=== PATIENT | male | born 1985 | race Two or more races ===

== ENCOUNTER 2020-05-08 22:32 | Emergency (ER) | payer MEDICAID, OTHER ==
[~2020-05-08] VITALS: Ht 170.2 cm; Wt 79.4 kg
[2020-05-08] MEDS ORDERED: BUPIVACAINE 0.5% P/F INJ 10 ML VIAL ONE (22:43)
[2020-05-08 23:29] LABS: Basophils # (auto) 0.1 10 ^3/uL (0-0.2); Eosinophils # (auto) 0.2 10 ^3/uL (0-0.8); Eosinophils % (auto) 2.2 % (0.0-7.0); Hematocrit 45.5 % (41.0-53.0); Hemoglobin 15.6 g/dL (13.5-17.5); Lymphocytes # (auto) 3.1 10 ^3/uL (0.4-5.4); Mean Corpuscular Hemoglobin 29.3 pg (28.0-32.0); Mean Corpuscular Hgb Conc. 34.3 g/dL (32.0-36.0); Mean Corpuscular Volume 85.2 fL (80.0-100.0); Monocytes # (auto) 0.7 10 ^3/uL (0-1.3); Monocytes % (auto) 6.8 % (0.0-12.0); Neutrophils # (auto) 6.5 10 ^3/uL (1.6-8.6); Nucleated Red Blood Cells % 0.2 %; Platelet Count (auto) 271 10^3/uL (140-450); Red Blood Cells 5.33 10^6/uL (4.5-5.90); Red Cell Distribution Width 13.7 % (11.8-14.3); White Blood Cell 10.7 10^3/uL (4.4-10.8)
[2020-05-08] MEDS ORDERED: cefTRIAXone 1GM/50ML D5W 50 ML IV ONE (23:30)
[2020-05-08] MEDS ORDERED: TETANUS-DIPTH-ACEL PERTUSSIS 0.5ML SYR Tdap IM ONE (23:30)
[2020-05-08 23:46] LABS: INR 0.92 (0.9-1.15); Partial Thromboplastin Time 25.7 sec (23.0-31.2)
[2020-05-08 23:49] LABS: Albumin 3.8 g/dL (3.4-5.0); Calcium 8.7 mg/dL (8.5-10.1)
[2020-05-08 23:53] LABS: Bilirubin, Total 0.4 mg/dL (0.2-1.0); Potassium 2.9 mmol/L (3.5-5.1)
[2020-05-09] MEDS ORDERED: POTASSIUM CHL 20 Meq TABLET PO ONE
[2020-05-09 00:03] LABS: BUN/Creatinine Ratio 18.1
[2020-05-09] MEDS ORDERED: LIDOCAINE 1% HCL (LOCAL ANESTH.) INJ 20ML MDV ID ONE (01:30)
[2020-05-09] MEDS ORDERED: ALBUMIN 25% 50 ML IV ONE (01:45)
[2020-05-09 03:15] VITALS: BP 91/56
== END 2020-05-09 04:14 | disposition home or self-care (01) ==
LOC: ER 22:32
DX: S61.210A Laceration without foreign body of right index finger without damage to nail, initial encounter (principal); V91.19XA Crushed between unspecified watercraft and other watercraft or other object due to collision, initial encounter; Y93.89 Activity, other specified; Y92.89 Other specified places as the place of occurrence of the external cause; Y99.8 Other external cause status
CPT/HCPCS: 13131; 36415; 73130; 80053; 85025; 85610; 85730; 90471; 90715; 96365; 96367; 99285; J0696; J2001; J3490; J7030; P9047; 13120

== ENCOUNTER 2020-05-11 19:21 | Emergency (ER) | payer MEDICAID ==
[~2020-05-11] VITALS: Ht 170.2 cm; Wt 81.6 kg
[2020-05-11 19:35] VITALS: BP 129/88
== END 2020-05-11 20:12 | disposition home or self-care (01) ==
LOC: ER 19:21
DX: M79.644 Pain in right finger(s) (principal); S68.120D Partial traumatic metacarpophalangeal amputation of right index finger, subsequent encounter; X58.XXXD Exposure to other specified factors, subsequent encounter

== ENCOUNTER 2020-09-30 12:41 | Emergency (ER) | payer MEDICAID ==
[~2020-09-30] VITALS: Ht 172.7 cm; Wt 90.7 kg
[2020-09-30 13:52] LABS: Basophils # (auto) 0.1 10 ^3/uL (0-0.2); Basophils % (auto) 0.9 % (0.0-2.0); Eosinophils # (auto) 0.1 10 ^3/uL (0-0.8); Eosinophils % (auto) 0.5 % (0.0-7.0); Hemoglobin 16.3 g/dL (13.5-17.5); Lymphocytes # (auto) 1.8 10 ^3/uL (0.4-5.4); Lymphocytes % (auto) 14.7 % (10.0-50.0); Mean Corpuscular Hemoglobin 29.3 pg (28.0-32.0); Mean Corpuscular Hgb Conc. 33.9 g/dL (32.0-36.0); Mean Corpuscular Volume 86.6 fL (80.0-100.0); Monocytes % (auto) 8.5 % (0.0-12.0); Neutrophils % (auto) 75.4 % (37.0-80.0); Nucleated Red Blood Cells % 0.1 %; Red Blood Cells 5.55 10^6/uL (4.5-5.90); Red Cell Distribution Width 13.4 % (11.8-14.3); White Blood Cell 11.9 10^3/uL (4.4-10.8)
[2020-09-30 14:13] LABS: Potassium 4.6 mmol/L (3.5-5.1)
[2020-09-30 14:21] LABS: Albumin 3.1 g/dL (3.4-5.0); BUN/Creatinine Ratio 8.6; Bilirubin, Total 0.5 mg/dL (0.2-1.0); Calcium 10.9 mg/dL (8.5-10.1); Total Protein 9.1 g/dL (6.4-8.2)
[2020-09-30] MEDS ORDERED: HYDROcodone-ACET 5/325MG TAB PO ONE (15:15)
[2020-09-30] MEDS ORDERED: ALUM & MAG HYDROX-SIMETH LIQ(MAALOX) 30 ML PO ONE (17:30)
[2020-09-30] MEDS ORDERED: AMOXICILLIN/CLAVUL 875 MG TAB PO ONE (17:30)
[2020-09-30 18:20] VITALS: BP 119/91
== END 2020-09-30 18:50 | disposition home or self-care (01) ==
LOC: ER 12:41
DX: K57.32 Diverticulitis of large intestine without perforation or abscess without bleeding (principal); R16.0 Hepatomegaly, not elsewhere classified; Z88.8 Allergy status to other drugs, medicaments and biological substances
CPT/HCPCS: 36415; 74176; 76705; 80053; 82150; 83690; 85025